=== PATIENT | female | born 1935 | race Caucasian/White ===

== ENCOUNTER 2018-09-13 14:15 | Inpatient (IN) | payer MEDICARE, MEDICAID ==
[~2018-09-13] VITALS: Ht 160 cm; Wt 89.4 kg
[2018-09-13] MEDS ORDERED: BENZ0.5T43 PO (14:52)
[2018-09-13] MEDS ORDERED: DIVA125C5 PO (14:52)
[2018-09-13] MEDS ORDERED: QUET100T PO (14:53)
[2018-09-13] MEDS ORDERED: QUET25TA PO (14:53)
[2018-09-13 14:59] LABS: *BILIRUBIN,URIN NEGATIVE (NEGATIVE); *BLOOD, URINE NEGATIVE (NEGATIVE); *CLARITY,URINE CLEAR (CLEAR); *COLOR,URINE YELLOW (YELLOW); *KETONES,URINE NEGATIVE (NEGATIVE); *UROBILINOGEN,URINE 0.2 E.U./dl (NORMAL); LEUKOCYTE ESTERASE ,URINE TRACE (NEGATIVE); NITRITE, URINE NEGATIVE (NEGATIVE); PH,URINE 5.5 (5.0-8.0); UGLUCOSE NEGATIVE (NEGATIVE)
[2018-09-13 15:01] LABS: BASOPHILS % (AUTO) 0.3 % (0.0-2.0); EOSINOPHILS # (AUTO) 0.1 K/uL (0.0-0.7); EOSINOPHILS % (AUTO) 1.6 % (0.0-7.0); HEMATOCRIT 35.8 % (31.2-41.9); HEMOGLOBIN 11.6 g/dL (10.9-14.3); LYMPHOCYTES # (AUTO) 3.4 K/uL (20.0-40.0); LYMPHOCYTES % (AUTO) 44.1 % (20.5-51.5); MEAN CORPUSCULAR HEMOGLOBIN 28.2 uug (24.7-32.8); MEAN CORPUSCULAR HGB CONC 33 g/dL (32.3-35.6); MEAN CORPUSCULAR VOLUME 86.7 fL (75.5-95.3); MONOCYTES # (AUTO) 0.6 K/uL (2.0-10.0); MONOCYTES % (AUTO) 7.3 % (0.0-11.0); NEUTROPHILS # (AUTO) 3.6 K/uL (1.8-8.9); NEUTROPHILS % (AUTO) 46.7 % (38.5-71.5); PLATELET COUNT (AUTO) 218 K/uL (179-408); RED BLOOD CELL COUNT(AUTO) 4.13 MIL/uL (3.63-4.92); WHITE BLOOD COUNT (AUTO) 7.8 K/uL (3.8-11.8)
[2018-09-13 15:11] LABS: ALANINE AMINOTRANSFERASE 9 U/L (14-59); ALKALINE PHOSPHATASE 95 U/L (50-136); ASPARTATE AMINOTRANSFERASE 14 U/L (15-37); BILIRUBIN,DIRECT 0.1 mg/dL (0.0-0.2); BILIRUBIN,TOTAL 0.5 mg/dL (0.2-1.0); CARBON DIOXIDE 25 mmol/L (21-32); CHLORIDE 107 mmol/L (98-107); CREATININE 1.3 mg/dL (0.6-1.3); GLUCOSE 111 mg/dL (74-106); POTASSIUM 3.3 mmol/L (3.5-5.1); TOTAL PROTEIN, SERUM 6.9 g/dL (6.4-8.2); UREA NITROGEN, BLOOD 8 mg/dL (7-18)
[2018-09-13 15:14] LABS: ACETAMINOPHEN < 2.0 ug/mL (10-30)
[2018-09-13 15:15] LABS: *AMPHETAMINE, URINE NEGATIVE (NEGATIVE); *BARBITURATE, URINE NEGATIVE (NEGATIVE); *CANNABINOID, URINE NEGATIVE (NEGATIVE); *COCCAINE, URINE NEGATIVE (NEGATIVE); *OPIATE, URINE NEGATIVE (NEGATIVE); *PHENCYCLIDINE SCREEN,URINE NEGATIVE (NEGATIVE)
[2018-09-13 15:18] LABS: ETHANOL < 3 MG/DL (0-0)
[2018-09-13 15:26] LABS: SQUAMOUS EPITHELIAL CELL,UR FEW /HPF (NONE SEEN); WBC,URINE 0-3 /HPF (0-3)
[2018-09-13 15:35] LABS: THYROID STIMULATING HORMONE 3.076 mIU/mL (0.358-3.740)
--- NOTE | 2018-09-13 15:48 | NUR ---
CALLED SUPERVISOR MAILS, ANTHONY OSULLIVAN, FOR PSYCH EVAL. ETA 1 HOUR.
[2018-09-13] MEDS ORDERED: POTASSIUM CHLORIDE 20 MEQ TAB.PRT.SR PO ONE (16:30)
[2018-09-13] MEDS ORDERED: POTASSIUM CHLORIDE 20 MEQ TAB.PRT.SR ONE (16:35)
[2018-09-13] MEDS ORDERED: POTASSIUM CHLORIDE 20 MEQ POWDER PACKET ONE (16:38)
--- NOTE | 2018-09-13 16:43 | NUR ---
ANTHONY OSULLIVAN, CRISIS DISC PAD KNOCKOUT WORKER, AT BEDSIDE FOR PSYCH EVAL.
[2018-09-13] MEDS ORDERED: POTASSIUM CHLORIDE 20 MEQ POWDER PACKET PO ONE (16:45)
--- NOTE | 2018-09-13 17:41 | NUR ---
Pt. admitted to [facility], under care of Dr. VERMA/JUANPABLO Belongs List completed
--- NOTE | 2018-09-13 17:41 | NUR ---
ADMITTING REPORT GIVEN TO LILLIAM VINCENT.
--- NOTE | 2018-09-13 18:00 | NUR ---
Gps/Mill Operator- Admitted an 83 years old female from ER accompanied by her daughter Shantelle, via gurney. Awake, alert, oriented x2. Patient anxious, figity , needed verbal cueing and prompting , given one step command.Per patient she came to the hospital to have a check up and regulate her medications. Per daughter Shantelle she had previous hospitalization at [facility].around 2006.per report patient had been hearing some voices, and > anxiety. per daughter patient is in transition to move with her from [place]. Bladder incontinence noted, during admission, toileted, assisted with her hygiene. No dentures noted. Safety reviewed and emphasized, slightly unsteady gait. Deneis hearing voices during admission, but noted anxious, and figity .
[2018-09-13] MEDS ORDERED: MAGNESIUM HYDROXIDE 30 ML LIQUID UDC PO PRN (18:15)
[2018-09-13] MEDS ORDERED: TEMAZEPAM 7.5 MG CAPSULE PO PRN (18:15)
[2018-09-13] MEDS ORDERED: MAG HYDROX/AL HYDROX/SIMETH 30 ML LIQUID UDC PO PRN (18:15)
[2018-09-13] MEDS ORDERED: ACETAMINOPHEN 325 MG TABLET PO PRN (18:15)
[2018-09-13 20:12] VITALS: BP 157/67
[2018-09-14 08:00] VITALS: BP 140/57
[2018-09-14] MEDS: LORAZEPAM 0.5 MG TABLET PO PRN (09:07)
--- NOTE | 2018-09-14 12:33 | NUR ---
GPS: RECEIVED PATIENT AOX3 PATIENT DENIES SI AND HI, PATIENT REMAIN ISOLATIVE AND WITHDRAWN , COMPLIANT WITH MEDICATION, REFUSED TO SIT ON CHAIR , PATIENT DENIES PAIN, IN NO DISTRESS AT THE MOMENT WILL CONTINUE MONITOR
[2018-09-14 16:00] VITALS: BP 118/49
[2018-09-14] MEDS: QUETIAPINE FUMARATE 100 MG TABLET PO SCH (20:04)
[2018-09-14] MEDS: VALPROIC ACID 250 MG/5 ML LIQUID UDC PO SCH (20:04)
[2018-09-14 20:32] VITALS: BP 164/55
[2018-09-14] MEDS ORDERED: VALPROIC ACID 250 MG CAPSULE PO SCH (21:00)
[2018-09-15] MEDS: SERTRALINE HCL 50 MG TABLET PO SCH (08:09)
[2018-09-15] MEDS: QUETIAPINE FUMARATE 25 MG TABLET PO SCH (08:09)
[2018-09-15 16:00] VITALS: BP 108/81
[2018-09-15 20:00] VITALS: BP 105/47
[2018-09-15] MEDS: QUETIAPINE FUMARATE 100 MG TABLET PO SCH (20:33)
[2018-09-15] MEDS: VALPROIC ACID 250 MG/5 ML LIQUID UDC PO SCH (20:33)
[2018-09-15 22:49] VITALS: BP 111/40
[2018-09-16 07:30] VITALS: BP 126/51
[2018-09-16 07:52] LABS: CARBON DIOXIDE 30 mmol/L (21-32); CHLORIDE 107 mmol/L (98-107); CREATININE 1.1 mg/dL (0.6-1.3); GLUCOSE 95 mg/dL (74-106); POTASSIUM 3.9 mmol/L (3.5-5.1); UREA NITROGEN, BLOOD 12 mg/dL (7-18)
[2018-09-16] MEDS: SERTRALINE HCL 50 MG TABLET PO SCH (08:28)
[2018-09-16] MEDS: QUETIAPINE FUMARATE 25 MG TABLET PO SCH (08:28)
--- NOTE | 2018-09-16 14:46 | NUR ---
Preliminary Discharge Plan/Discharge needs: Per hold, pt lives with her daughter Brenda at [address] [place] [id number]; [phone]. Pt would like to return to her home with her daughter after discharge. dye house worker will plan to discuss placement options with pt, family, and MD for discharge planning. dye house worker will continue to work on a safe and proper discharge plan for pt.
[2018-09-16 15:22] VITALS: BP 132/69
[2018-09-16 20:00] VITALS: BP 135/63
[2018-09-16] MEDS: QUETIAPINE FUMARATE 100 MG TABLET PO SCH (20:15)
[2018-09-16] MEDS: VALPROIC ACID 250 MG/5 ML LIQUID UDC PO SCH (20:16)
[2018-09-17 07:30] VITALS: BP 134/59
[2018-09-17] MEDS: QUETIAPINE FUMARATE 25 MG TABLET PO SCH (08:23)
[2018-09-17] MEDS: SERTRALINE HCL 50 MG TABLET PO SCH (08:23)
[2018-09-17] MEDS: LORAZEPAM 0.5 MG TABLET PO PRN (08:23)
[2018-09-17 15:26] VITALS: BP 128/59
--- NOTE | 2018-09-17 18:15 | NUR ---
GPS: RECEIVED PATIENT AOX3 PATIENT DENIES SI AND HI, PATIENT REMAIN ISOLATIVE AND WITHDRAWN , COMPLIANT WITH MEDICATION, PATIENT VERBALIZES THAT SHES HEARING VOICES, REDIRECT PATIENT AND TRIED TO REASSURE PATIENT ,PATIENT CALM AND COOPERATIVE, WILL CONTINUE MONITOR
[2018-09-17 20:01] VITALS: BP 105/51
[2018-09-17] MEDS: QUETIAPINE FUMARATE 100 MG TABLET PO SCH (20:28)
[2018-09-17] MEDS: VALPROIC ACID 250 MG/5 ML LIQUID UDC PO SCH (20:28)
[2018-09-18 07:30] VITALS: BP 101/56
[2018-09-18] MEDS: QUETIAPINE FUMARATE 25 MG TABLET PO SCH (08:12)
[2018-09-18] MEDS: SERTRALINE HCL 50 MG TABLET PO SCH (08:12)
[2018-09-18 15:30] VITALS: BP 126/56
--- NOTE | 2018-09-18 17:57 | NUR ---
GPS: RECEIVED PATIENT AOX3 PATIENT DENIES SI AND HI, PATIENT REMAIN ISOLATIVE AND WITHDRAWN , COMPLIANT WITH MEDICATION, PATIENT DENIES HEARING VOICES, ENCOURAGE PATIENT TO JOIN GROUP ACTIVITY, PATIENT CALM AND COOPERATIVE, WILL CONTINUE MONITOR
[2018-09-18] MEDS: ATORVASTATIN 10 MG TABLET PO SCH (20:54)
[2018-09-18] MEDS: QUETIAPINE FUMARATE 100 MG TABLET PO SCH (20:54)
[2018-09-18] MEDS: VALPROIC ACID 250 MG/5 ML LIQUID UDC PO SCH (20:54)
[2018-09-18 21:03] VITALS: BP 122/54
[2018-09-19 07:30] VITALS: BP 125/68
[2018-09-19] MEDS: QUETIAPINE FUMARATE 25 MG TABLET PO SCH (08:53)
[2018-09-19] MEDS: SERTRALINE HCL 50 MG TABLET PO SCH (08:53)
[2018-09-19 16:00] VITALS: BP 149/48
[2018-09-19] MEDS: VALPROIC ACID 250 MG/5 ML LIQUID UDC PO SCH (20:43)
[2018-09-19] MEDS: ATORVASTATIN 10 MG TABLET PO SCH (20:47)
[2018-09-19] MEDS ORDERED: QUETIAPINE FUMARATE 100 MG TABLET PO SCH (21:00)
[2018-09-19 21:12] VITALS: BP 145/52
[2018-09-20 07:30] VITALS: BP 132/54
[2018-09-20] MEDS: SERTRALINE HCL 50 MG TABLET PO SCH (08:14)
[2018-09-20] MEDS: QUETIAPINE FUMARATE 25 MG TABLET PO SCH (08:14)
--- NOTE | 2018-09-20 12:40 | NUR ---
Gps/Supervisor [place] [place]- Discharge planning in progress, Dr Raya was able to talked to patients' daughter. Prescriptions received from Dr Raya. Patient daughter to provide transportation.
--- NOTE | 2018-09-20 12:48 | NUR ---
Discharge Note Patient will be discharged back home to [ [address], [place], [place] [address]; [phone]] where she lives with her daughter, Dayana [[phone]]. Patient�s other daughter, Shantelle Vigil will be picking her up between 1-1:30pm and transporting her to her home in [place] [[address], [place] [address]]. Per Shantelle, Pt will stay with her for a week, then go back to her home in [place] with daughter Dayana. Patient is alert and oriented x3, and denies current suicidal ideation or homicidal ideation. Staff Radiographer spoke with Shantelle Vigil [daughter], and provided potential Independent Living placement options for the patient: [facility] [[address] [place] [address]; Y[facility]- ]. Shantelle went to tour the facilities and decided it was better for them to take their mom back home with Home Health Care [[facility] [employer] [phone]]. YESIKA spoke with Naina [Marketing Finance Manager, ] of the Home healthcare and they will see the patient post discharge for further assessment. Patient aware and agreeable with discharge plan. Patient will follow up with home healthcare services [[facility] [phone]] . Patient was provided with resources: [facility] [phone]; [facility] Crisis Line ; Matilda Roberson National Suicide Prevention Lifeline .
--- NOTE | 2018-09-20 14:00 | NUR ---
Gps/Industrial Gas Service Helper- Shantelle (patients' daughter) called asking what time she can come to garbage pick up worker patient, informed if she can wait for 30-40 minutes to get patient ready since patient was not ready. Per daughter she's is waiting in a restaurant and she is tired , and hanged up the phone.
--- NOTE | 2018-09-20 14:30 | NUR ---
Gps/Clinic Receptionist- Offered to assist patient to dressed up, refused per CELLOPHANE WORKER, wants to wait for her daughter.
--- NOTE | 2018-09-20 17:00 | NUR ---
Gps/Computing Tutor- Daughter Shantelle in to fruit or nut picker patient, reviewed discharge instructions , medications/prescriptions, diet, skin care, safety emphasized, both patient and daughter verbalized understanding. Daughter appreciative of care done/given to her Mother. Discharged via private car in good spirit , no complaints noted. All belongings given back to family.
== END 2018-09-20 17:10 | disposition home or self-care (01) | DRG 885 ==
LOC: ER 14:15 → GPS 17:27
PROVIDERS: ADMIT Psychiatry & Neurology Psychiatry; ATTEND Internal Medicine
DX: F39 Unspecified mood [affective] disorder (principal); E66.9 Obesity, unspecified; Z68.34 Body mass index [BMI] 34.0-34.9, adult; Z98.82 Breast implant status; E87.6 Hypokalemia; E78.5 Hyperlipidemia, unspecified; K59.00 Constipation, unspecified; F41.9 Anxiety disorder, unspecified; F22 Delusional disorders
CPT/HCPCS: 36415; 70030-TC; 70450; 71045; 80164; 80307; 84443; 85025; 85730; 93005; 97116; 97530; A4663; G0480; G0480-TC